=== PATIENT | male | born 1940 | race Native Hawaiian/Other Pacific Islander ===

== ENCOUNTER 2016-12-24 19:24 | Emergency (ER) | payer MEDICARE, OTHER ==
[2016-12-24 19:36] VITALS: BP 142/75; PULSE 81; RESP 20; TEMP 98; O2SAT 99
--- NOTE | 2016-12-24 20:59 | CT ---
EXAM: CT Head Without Intravenous Contrast EXAM DATE/TIME: 12/24/2016 7:58 PM CLINICAL HISTORY: 76 years old, male; Injury or trauma; Fall; Initial encounter; Concussion / head injury; Consciousness not specified; Injury details: Pt. Fell i week ago, he now has headache; Additional info: Fall 1 w ago, headaches TECHNIQUE: Axial computed tomography images of the head/brain without intravenous contrast. All CT scans at this facility use one or more dose reduction techniques, viz.: automated exposure control; ma/kV adjustment per patient size (including targeted exams where dose is matched to indication; i.e. head); or iterative reconstruction technique. Coronal and sagittal reformatted images were created and reviewed. COMPARISON: No relevant prior studies available. FINDINGS: BRAIN: Focal area of low density is seen in the right basal ganglia, most compatible with an old/chronic lacunar infarct. Diffuse, age-related cortical atrophy and ventriculomegaly. No significant acute abnormality identified. No acute hemorrhage seen within the brain. No acute extra-axial fluid collections visualized. No evidence of significant mass effect within the brain. VENTRICLES: See above. BONES/JOINTS: Left nasal bone fracture, which appears chronic, however, recommend clinical correlation. No additional acute fractures seen. Skull base and calvarium appear intact. SOFT TISSUES: No acute abnormality of the visualized soft tissues is seen. SINUSES: Visualized paranasal sinuses appear clear. MASTOID AIR CELLS: Mastoid air cells appear clear. IMPRESSION: - No evidence of acute intracranial injury. - Left nasal bone fracture, which appears chronic. - See above for remaining findings.
--- NOTE | 2016-12-24 21:21 | ED PDOC ---
HPI: Trauma/Fall - HPI Time Seen by Provider: 12/24/16 19:37 Chief Complaint (Nursing): Trauma Chief Complaint (Provider): Trauma History Per: Patient History/Exam Limitations: no limitations Onset/Duration Of Symptoms: Days (x1 week) Location Of Injury: Left: Elbow, Anterior: Head Associated Symptoms: denies: LOC Additional Complaint(s): Nanda Lugo is a 76 year old male, with a past medical history of hypertension and hypothyroidism, who presents to the emergency department complaining of throbbing frontal headache associated with a small superficial abrasion onset since today. Patient reports last week he slipped and fell on marble floor hitting his forehead and left elbow. He was on vacation in [facility] when it happened, thus wasn't able to seek medical attention at the time. When patient returned home, his symptoms worsen which prompted the ED visit. Patient denies any loss of consciousness. PMD: Brant Chew - Fall Fall:Prior To Injury: Slipped Past Medical History Reviewed: Historical Data, Nursing Documentation, Vital Signs Vital Signs: Last Vital Signs Temp 98.0 F 12/24/16 19:33 Pulse 81 12/24/16 19:33 Resp 20 12/24/16 19:33 BP 142/75 12/24/16 19:33 Pulse Ox 99 12/24/16 21:59 - Medical History PMH: HTN, Hypothyroidism - Surgical History Surgical History: Cholecystectomy - Family History Family History: States: Unknown Family Hx - Social History Alcohol: None Drugs: Denies - Home Medications Home Medications: Ambulatory Orders Medication Instructions Recorded Ciprofloxacin [Cipro] 500 mg PO BID #10 tab 05/08/16 Dicyclomine [Dicyclomine HCl] 10 mg PO TID PRN #12 cap 05/08/16 Ibuprofen [Motrin Tab] 600 mg PO Q6 PRN #15 tab 05/08/16 metroNIDAZOLE [Flagyl] 500 mg PO TID #15 tab 05/08/16 - Allergies Allergies/Adverse Reactions: Allergies Allergy/AdvReac Type Severity Reaction Status Date / Time No Known Allergies Allergy Verified 05/08/16 13:45 Review of Systems ROS Statement: Except As Marked, All Systems Reviewed And Found Negative Skin: Positive for: Other (small superficial abrasion on forehead) Neurological: Positive for: Headache (throbbing) Physical Exam - Reviewed Nursing Documentation Reviewed: Yes Vital Signs Reviewed: Yes - Physical Exam Appears: Positive for: Well, Non-toxic, No Acute Distress Head Exam: Positive for: ATRAUMATIC, NORMAL INSPECTION, NORMOCEPHALIC Skin: Positive for: Normal Color, Warm, DRY Eye Exam: Positive for: EOMI, Normal appearance, PERRL Respiratory: Positive for: Normal Breath Sounds. Negative for: Respiratory Distress Extremity: Positive for: Normal ROM Neurologic/Psych: Positive for: Alert, Oriented - ECG O2 Sat by Pulse Oximetry: 99 (RA) Pulse Ox Interpretation: Normal Medical Decision Making Medical Decision Making: Initial Impression: Concussion Initial Plan: --Elbow two views LT [RAD] --Tylenol 650 mg PO --reevaluation 20:[address] FINDINGS: BRAIN: Focal area of low density is seen in the right basal ganglia, most compatible with an old/chronic lacunar infarct. Diffuse, age-related cortical atrophy and ventriculomegaly. No significant acute abnormality identified. No acute hemorrhage seen within the brain. No acute extra-axial fluid collections visualized. No evidence of significant mass effect within the brain. VENTRICLES: See above. BONES/JOINTS: Left nasal bone fracture, which appears chronic, however, recommend clinical correlation. No additional acute fractures seen. Skull base and calvarium appear intact. SOFT TISSUES: No acute abnormality of the visualized soft tissues is seen. SINUSES: Visualized paranasal sinuses appear clear. MASTOID AIR CELLS: Mastoid air cells appear clear. IMPRESSION: - No evidence of acute intracranial injury. - Left nasal bone fracture, which appears chronic. - See above for remaining findings. Scribe Attestation: Documented by Darren Ramsay, acting as a scribe for Pricilla LABOY. Provider Scribe Attestation: All medical record entries made by the Scribe were at my direction and personally dictated by me. I have reviewed the chart and agree that the record accurately reflects my personal performance of the history, physical exam, medical decision making, and the department course for this patient. I have also personally directed, reviewed, and agree with the discharge instructions and disposition. Disposition - Clinical Impression Clinical Impression: Post concussion syndrome, Elbow contusion - Patient ED Disposition Is Patient to be Admitted: No - Disposition Disposition: Routine/Home Disposition Time: 23:00 Condition: STABLE Instructions: Concussion (ED), Contusion in Adults (ED) Forms: [employer] (N[place]ien)
--- NOTE | 2016-12-24 22:07 | RAD ---
EXAM: XR Left Elbow, 2 Views EXAM DATE/TIME: 12/24/2016 8:14 PM CLINICAL HISTORY: 76 years old, male; Injury or trauma; Fall; Initial encounter; Blunt trauma (contusions or hematomas; Elbow; Left; Injury date: 12-17-2016; Additional info: Pain S/P fall TECHNIQUE: Frontal and lateral views of the left elbow. COMPARISON: No relevant prior studies available. FINDINGS: BONES/JOINTS: 1 cm chronic-appearing, corticated bony density seen posterior to the olecranon process, most likely representing either ligamentous ossification or the sequela of a remote injury. No evidence of acute dislocation. No acute fractures are seen. No radiographic evidence of significant joint effusion. SOFT TISSUES: No radiographic evidence of significant soft tissue abnormality. IMPRESSION: - No acute fracture or dislocation seen. - See above for remaining findings.
== END 2016-12-24 22:30 | disposition home or self-care (01) ==
LOC: H.ER 19:24
DX: S50.02XA Contusion of left elbow, initial encounter (principal); F07.81 Postconcussional syndrome; I10 Essential (primary) hypertension; E03.9 Hypothyroidism, unspecified; W19.XXXA Unspecified fall, initial encounter

== ENCOUNTER 2017-08-27 07:00 | Emergency (ER) | payer MEDICARE, OTHER ==
[2017-08-27 07:41] VITALS: RESP 17
--- NOTE | 2017-08-27 07:44 | ED PDOC ---
HPI: Abdomen Time Seen by Provider: 08/27/17 07:26 Chief Complaint (Nursing): Abdominal Pain Chief Complaint (Provider): abdominal pain History Per: Patient History/Exam Limitations: no limitations Onset/Duration Of Symptoms: Days (a year), Intermittent Episodes Current Symptoms Are (Timing): Still Present Location Of Pain/Discomfort: Other (right sided) Quality Of Discomfort: "Pain" Associated Symptoms: denies: Vomiting, Diarrhea, Loss Of Appetite Additional Complaint(s): Nanda Lugo is a 76 year old male, with a past medical history of HTN and hypercholesterolemia, who presents to the emergency department complaining of right sided abdominal pain ongoing intermittently for more than a year. Patient took Aleve which he states worsens the pain. He had a work up in winter , including CT scan in [place] and an endoscopy in [place]. He denies any loss of appetite, vomiting or diarrhea. No further medical complaints. Denies urinary symptoms, chest pain, SOB, dizziness or syncope. PMD: Konrad Chew Past Medical History Reviewed: Historical Data, Nursing Documentation, Vital Signs Vital Signs: Last Vital Signs Temp 98.4 F 08/27/17 11:15 Pulse 62 08/27/17 11:15 Resp 17 08/27/17 11:15 BP 140/75 08/27/17 11:15 Pulse Ox 100 08/27/17 11:15 - Medical History PMH: HTN, Hypercholesterolemia, Hypothyroidism - Surgical History Surgical History: Back Surgery, Cholecystectomy - Family History Family History: States: Unknown Family Hx - Social History Alcohol: None Drugs: Denies - Home Medications Home Medications: Ambulatory Orders Medication Instructions Recorded Ciprofloxacin [Cipro] 500 mg PO BID #10 tab 05/08/16 Dicyclomine [Dicyclomine HCl] 10 mg PO TID PRN #12 cap 05/08/16 Ibuprofen [Motrin Tab] 600 mg PO Q6 PRN #15 tab 05/08/16 metroNIDAZOLE [Flagyl] 500 mg PO TID #15 tab 05/08/16 traMADol [Ultram] 50 mg PO TID PRN #12 tab 08/27/17 - Allergies Allergies/Adverse Reactions: Allergies Allergy/AdvReac Type Severity Reaction Status Date / Time No Known Allergies Allergy Verified 08/27/17 07:37 Review of Systems ROS Statement: Except As Marked, All Systems Reviewed And Found Negative Gastrointestinal: Positive for: Abdominal Pain (right sided). Negative for: Vomiting, Diarrhea Physical Exam - Reviewed Nursing Documentation Reviewed: Yes Vital Signs Reviewed: Yes - Physical Exam Appears: Positive for: Non-toxic, No Acute Distress Head Exam: Positive for: ATRAUMATIC, NORMOCEPHALIC Skin: Positive for: Normal Color, Warm, Dry Eye Exam: Positive for: Normal appearance, EOMI, PERRL Neck: Positive for: Painless ROM Cardiovascular/Chest: Positive for: Regular Rate, Rhythm. Negative for: Murmur Respiratory: Positive for: Normal Breath Sounds. Negative for: Respiratory Distress Gastrointestinal/Abdominal: Positive for: Tenderness (mild right sided), Other ( large elliptical scar on the abdomen) Back: Positive for: Normal Inspection, Other (midline lumbar healed scar). Negative for: L CVA Tenderness, R CVA Tenderness, Vertebral Tenderness Extremity: Positive for: Normal ROM (all extremities). Negative for: Tenderness , Deformity, Swelling Neurologic/Psych: Positive for: Alert, Oriented. Negative for: Motor/Sensory Deficits - Laboratory Results Result Diagrams: 08/27/17 08:08 08/27/17 08:08 - ECG O2 Sat by Pulse Oximetry: 99 (RA) Pulse Ox Interpretation: Normal Medical Decision Making Medical Decision Making: Initial Impression: Abdominal pain. Initial Plan: --Abd & Pelvis PO contrast only [CT] --CMP --Lipase --CBC w/ differential --Omnipaque 240 50 ml PO --Urinalysis --Reevaluation -Will order labs and CT. Patient states he had a prior allergic reaction to contrast dyes. 10:[address] FINDINGS: LOWER THORAX: Coronary arterial and valvular calcifications. Heart size normal. No focal consolidation or pleural effusion. LIVER: Multiple bilateral hepatic cysts redemonstrated, the largest on the right again seen at the hepatic dome measuring 5.4 x 3.9 cm and the largest on the left again seen anteriorly measuring 4.5 x 2.8 cm. No gross lesion or ductal dilatation. GALLBLADDER AND BILE DUCTS: Prior cholecystectomy with surgical clips in place. PANCREAS: Unremarkable. No gross lesion or ductal dilatation. SPLEEN: Unremarkable. 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 No mass. KIDNEYS AND URETERS: Stable bilateral renal cysts. No hydronephrosis. No solid mass. VASCULATURE: Unremarkable. No aortic aneurysm. BOWEL: Colonic diverticulosis. No obstruction. No gross mural thickening. APPENDIX: Unremarkable. Normal appendix. PERITONEUM: Unremarkable. No free fluid. No free air. LYMPH NODES: Unremarkable. No enlarged lymph nodes. BLADDER: Unremarkable. REPRODUCTIVE: Prostatomegaly. BONES: Stable nonspecific sclerosis of the right iliac bone posteriorly. Prior posterior bilateral transpedicular fusion from L3-5. OTHER FINDINGS: None. IMPRESSION: No acute abdominal pelvic pathology. Stable findings as above. results discussed at length Needs outpatient GI followup Denies chest or respiratory symptoms Abdomen benign on re-evaluation. Scribe Attestation: Documented by Darren Ramsay, acting as a scribe for Bk Ledesma MD Provider Scribe Attestation: All medical record entries made by the Scribe were at my direction and personally dictated by me. I have reviewed the chart and agree that the record accurately reflects my personal performance of the history, physical exam, medical decision making, and the department course for this patient. I have also personally directed, reviewed, and agree with the discharge instructions and disposition. Disposition - Clinical Impression Clinical Impression: Abdominal pain - Patient ED Disposition Is Patient to be Admitted: No Counseled Patient/Family Regarding: Studies Performed, Diagnosis, Need For Followup, Rx Given - Disposition Referrals: Glenn Uriarte MD [Staff Provider] - Disposition: Routine/Home Disposition Time: 10:40 Condition: STABLE Additional Instructions: Followup with GI doctor for further testing. Return to ER for any worse or new symptoms, pain, fever, bleeding or any concern. Prescriptions: traMADol [Ultram] 50 mg PO TID PRN #12 tab PRN Reason: Pain, Moderate (4-7) Instructions: Acute Abdomen (Belly Pain), Adult (DC) Forms: [employer] (Greek)
[2017-08-27] MEDS ORDERED: Iohexol 240 (50 ml) ONE (08:03)
[2017-08-27] MEDS: Iohexol 240 (50 ml) PO ONE (08:07)
[2017-08-27 08:22] LABS: BASO % 0.6 % (0.0-2.0); EOS # 0.3 K/uL (0.0-0.7); EOS % 6.3 % (0.0-4.0); HEMOGLOBIN 15.6 g/dL (12.0-18.0); LYMPH # 1.5 K/uL (1.0-4.3); MEAN CELL VOLUME 81.7 fl (80.0-94.0); MEAN CORPUSCULAR HEMOGLOBIN 28.3 pg (27.0-31.0); MEAN CORPUSCULAR HGB CONC 34.7 g/dL (33.0-37.0); MEAN PLATELET VOLUME 6.7 fl (7.2-11.7); MONO # 0.4 K/uL (0.0-0.8); MONO % 7.7 % (0.0-10.0); NEUT # 3.1 K/uL (1.8-7.0); NEUT % 57.4 % (50.0-75.0); NRBC % 0.4 % (0.0-0.0); RBC 5.5 Mil/uL (4.40-5.90); WHITE BLOOD COUNT 5.4 K/uL (4.8-10.8)
[2017-08-27 08:27] LABS: ALB/GLOB RATIO 1.5 (1.0-2.1); ALBUMIN 4.2 g/dL (3.5-5.0); BLOOD UREA NITROGEN 25 mg/dl (9-20); CALCIUM 9.1 mg/dL (8.4-10.2); GFR AFRICAN-AMERICAN > 60; GFR NON-AFRICAN AMERICAN > 60; LIPASE 181 U/L (23-300)
[2017-08-27 08:40] LABS: ALT/SGPT 51 U/L (21-72); AST/SGOT 59 U/L (17-59)
--- NOTE | 2017-08-27 10:25 | CT ---
PROCEDURE: CT Abdomen and Pelvis without intravenous contrast HISTORY: R sided abd pain x1 year COMPARISON: CT scan of the abdomen and pelvis dated 05/08/2016. TECHNIQUE: Contiguous images were obtained from the domes of the diaphragms to the upper thighs without the administration of intravenous contrast. Oral contrast was not administered. Radiation dose: Total exam DLP = 931.3 mGy-cm. This CT exam was performed using one or more of the following dose reduction techniques: Automated exposure control, adjustment of the mA and/or kV according to patient size, and/or use of iterative reconstruction technique. FINDINGS: LOWER THORAX: Coronary arterial and valvular calcifications. Heart size normal. No focal consolidation or pleural effusion. LIVER: Multiple bilateral hepatic cysts redemonstrated, the largest on the right again seen at the hepatic dome measuring 5.4 x 3.9 cm and the largest on the left again seen anteriorly measuring 4.5 x 2.8 cm. No gross lesion or ductal dilatation. GALLBLADDER AND BILE DUCTS: Prior cholecystectomy with surgical clips in place. PANCREAS: Unremarkable. No gross lesion or ductal dilatation. SPLEEN: Unremarkable. 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 No mass. KIDNEYS AND URETERS: Stable bilateral renal cysts. No hydronephrosis. No solid mass. VASCULATURE: Unremarkable. No aortic aneurysm. BOWEL: Colonic diverticulosis. No obstruction. No gross mural thickening. APPENDIX: Unremarkable. Normal appendix. PERITONEUM: Unremarkable. No free fluid. No free air. LYMPH NODES: Unremarkable. No enlarged lymph nodes. BLADDER: Unremarkable. REPRODUCTIVE: Prostatomegaly. BONES: Stable nonspecific sclerosis of the right iliac bone posteriorly. Prior posterior bilateral transpedicular fusion from L3-5. OTHER FINDINGS: None. IMPRESSION: No acute abdominal pelvic pathology. Stable findings as above.
[2017-08-27 10:33] LABS: URINE BILIRUBIN NEGATIVE (NEGATIVE); URINE BLOOD NEGATIVE (NEGATIVE); URINE CLARITY CLEAR (Clear); URINE COLOR YELLOW (YELLOW); URINE GLUCOSE (UA) NEG (Normal); URINE LEUKOCYTE ESTERASE NEG Leu/uL (Negative); URINE PROTEIN NEGATIVE (NEGATIVE)
[2017-08-27 11:16] VITALS: BP 140/75; PULSE 62; TEMP 98.4
[2017-08-27 14:31] VITALS: O2SAT 99
== END 2017-08-27 11:16 | disposition home or self-care (01) ==
LOC: H.ER 07:00
DX: R10.9 Unspecified abdominal pain (principal); E03.9 Hypothyroidism, unspecified; E78.00 Pure hypercholesterolemia, unspecified; I10 Essential (primary) hypertension
CPT/HCPCS: 74176; 80053; 81003; 83690; 85025; 99283; Q9966

== ENCOUNTER 2017-10-22 05:23 | Emergency (ER) | payer MEDICARE, OTHER ==
[2017-10-22 05:39] VITALS: PULSE 65; TEMP 99
[2017-10-22] MEDS ORDERED: methylPREDNISolone 125 MG in Sodium Chloride 0.9% 50 ML IV STA (05:56)
[2017-10-22] MEDS ORDERED: DiphenhydrAMINE 50 mg/ml Inj IV STA (05:56)
[2017-10-22] MEDS ORDERED: Famotidine 20mg/50ml Premix IVPB STA (05:56)
[2017-10-22] MEDS ORDERED: DiphenhydrAMINE 50 mg/ml Inj ONE (06:03)
[2017-10-22] MEDS ORDERED: Famotidine 20mg/50ml 20 MG/50 ML BAG IVPB ONE ×2 (06:04→06:17)
[2017-10-22] MEDS ORDERED: Sodium Chloride 0.9% 1,000 ML IV STA (06:04)
--- NOTE | 2017-10-22 06:23 | ED PDOC ---
HPI: General Adult Time Seen by Provider: 10/22/17 05:49 Chief Complaint (Nursing): Eye Problem Chief Complaint (Provider): Eye Problem History Per: Patient History/Exam Limitations: no limitations Onset/Duration Of Symptoms: Days (x 2) Current Symptoms Are (Timing): Still Present Additional Complaint(s): 77 year old [place] male with a history of HTN and gastritis presents to the ED with an allergic reaction. Yesterday, patient ate fresh jackfruit and within the hour developed facial swelling to jaw area and left eye. He admits to taking Benadryl with improvement. This morning, he awoke and noticed left eye swelling again. Patient states he has had canned jackfruit before with no reaction. Denies shortness of breath, throat tightness, trouble swallowing and rash. PMD: Dr. Konrad Chew Past Medical History Reviewed: Historical Data, Nursing Documentation, Vital Signs Vital Signs: Last Vital Signs Temp 99.0 F 10/22/17 05:37 Pulse 65 10/22/17 05:37 Resp 18 10/22/17 10:58 BP 149/76 10/22/17 10:58 Pulse Ox 97 10/22/17 10:58 - Medical History PMH: HTN, Hypercholesterolemia, Hypothyroidism - Surgical History Surgical History: Back Surgery, Cholecystectomy - Family History Family History: States: Unknown Family Hx - Home Medications Home Medications: Ambulatory Orders Medication Instructions Recorded Ciprofloxacin [Cipro] 500 mg PO BID #10 tab 05/08/16 Dicyclomine [Dicyclomine HCl] 10 mg PO TID PRN #12 cap 05/08/16 Ibuprofen [Motrin Tab] 600 mg PO Q6 PRN #15 tab 05/08/16 metroNIDAZOLE [Flagyl] 500 mg PO TID #15 tab 05/08/16 traMADol [Ultram] 50 mg PO TID PRN #12 tab 08/27/17 Prednisone 50 mg PO DAILY #3 tablet 10/22/17 - Allergies Allergies/Adverse Reactions: Allergies Allergy/AdvReac Type Severity Reaction Status Date / Time No Known Allergies Allergy Verified 08/27/17 07:37 Review of Systems ROS Statement: Except As Marked, All Systems Reviewed And Found Negative Eyes: Positive for: Other (periorbital swelling in left eye ) ENT: Negative for: Throat Pain, Throat Swelling Respiratory: Negative for: Shortness of Breath Skin: Negative for: Rash Physical Exam - Reviewed Nursing Documentation Reviewed: Yes Vital Signs Reviewed: Yes - Physical Exam Appears: Positive for: Non-toxic, No Acute Distress Head Exam: Positive for: ATRAUMATIC, NORMAL INSPECTION, NORMOCEPHALIC Skin: Positive for: Normal Color, Warm, Dry Eye Exam: Positive for: EOMI, PERRL, Periorbital swelling (left sided ) Neck: Positive for: Normal, Painless ROM, Supple Cardiovascular/Chest: Positive for: Regular Rate, Rhythm. Negative for: Murmur Respiratory: Positive for: CNT, Normal Breath Sounds Gastrointestinal/Abdominal: Positive for: Normal Exam, Soft. Negative for: Tenderness Extremity: Positive for: Normal ROM. Negative for: Deformity Neurologic/Psych: Positive for: Alert, Oriented. Negative for: Motor/Sensory Deficits - ECG O2 Sat by Pulse Oximetry: 100 (RA) Pulse Ox Interpretation: Normal Medical Decision Making Medical Decision Making: Time: 05:56 Impression: 77 year old male with allergic reaction Initial Plan: --Benadryl 50 mg IV --NS IV 1,000 mls/hr --Pepcid 50 ml IV --SOLU- Medrol 125 mg IV ---- Scribe Attestation: Documented by Rivka Mcleod, acting as a scribe for Ru Griffin MD Provider Scribe Attestation: All medical record entries made by the Scribe were at my direction and personally dictated by me. I have reviewed the chart and agree that the record accurately reflects my personal performance of the history, physical exam, medical decision making, and the department course for this patient. I have also personally directed, reviewed, and agree with the discharge instructions and disposition. Disposition - Clinical Impression Clinical Impression: Allergic reaction - Patient ED Disposition Is Patient to be Admitted: Transfer of Care - Disposition Referrals: Konrad Chew MD [Primary Care Provider] - Disposition: Transfer of Care Disposition Time: 07:00 Condition: GOOD Additional Instructions: Follow up with your PCP in 2-3 days. Take your medications as instructed. Return for worsening. Prescriptions: Prednisone 50 mg PO DAILY #3 tablet Instructions: Angioedema Patient Signed Over To: Nhi Greenwood Handoff Comments: Pending reevaluation
--- NOTE | 2017-10-22 07:13 | ED PDOC ---
- ECG O2 Sat by Pulse Oximetry: 100 (RA) Pulse Ox Interpretation: Normal - Progress Re-evaluation Time: 08:30 Condition: Re-examined, Improved Medical Decision Making Medical Decision Making: Time: 0700 Patient signed out to me by Dr. Griffin pending reevaluation. Scribe Attestation: Documented by Basia Zarate, acting as a scribe for Nhi Greenwood MD Provider Scribe Attestation: All medical record entries made by the Scribe were at my direction and personally dictated by me. I have reviewed the chart and agree that the record accurately reflects my personal performance of the history, physical exam, medical decision making, and the department course for this patient. I have also personally directed, reviewed, and agree with the discharge instructions and disposition. Disposition Doctor Will See Patient In The: Office Counseled Patient/Family Regarding: Studies Performed, Diagnosis, Need For Followup - Clinical Impression Clinical Impression: Allergic reaction - POA Present On Arrival: None - Disposition Referrals: Konrad Chew MD [Primary Care Provider] - Disposition: Routine/Home Disposition Time: 09:00 Condition: GOOD Additional Instructions: Follow up with your PCP in 2-3 days. Take your medications as instructed. Return for worsening. Prescriptions: Prednisone 50 mg PO DAILY #3 tablet Instructions: Angioedema
[2017-10-22 10:59] VITALS: BP 149/76; RESP 18
[2017-10-23 04:16] VITALS: O2SAT 100
== END 2017-10-22 10:35 | disposition home or self-care (01) ==
LOC: H.ER 05:23
DX: T78.40XA Allergy, unspecified, initial encounter (principal); E03.9 Hypothyroidism, unspecified; E78.00 Pure hypercholesterolemia, unspecified; I10 Essential (primary) hypertension
CPT/HCPCS: 96361; 96365; 96375; 99283; J1200; J2930; J7030